=== PATIENT | male | born 1980 | race Caucasian/White ===

== ENCOUNTER 2021-06-06 19:14 | Emergency (ER) | payer OTHER ==
[~2021-06-06] VITALS: Ht 170.2 cm; Wt 90.9 kg
[2021-06-06] MEDS ORDERED: HYDROCODONE/ACETAMINOPHEN 5-325 MG TABLET PO ONE (22:30)
[2021-06-07] MEDS ORDERED: IBUP-2070 PO (01:49)
[2021-06-07 02:00] VITALS: BP 129/63
== END 2021-06-07 02:58 | disposition home or self-care (01) ==
LOC: EMS 19:20
DX: S80.01XA Contusion of right knee, initial encounter (principal); S90.31XA Contusion of right foot, initial encounter; S90.02XA Contusion of left ankle, initial encounter; M54.50 Low back pain, unspecified; Z88.6 Allergy status to analgesic agent; W11.XXXA Fall on and from ladder, initial encounter; Y93.89 Activity, other specified; Y92.89 Other specified places as the place of occurrence of the external cause; Y99.0 Civilian activity done for income or pay
CPT/HCPCS: 29530; 72100; 99284; 73562-TC; 73610-TC; 73630-TC; Z7502; Z7610

== ENCOUNTER 2022-05-11 04:07 | Emergency (ER) | payer SELFPAY ==
[~2022-05-11 04:07] MED LIST: IBUP-1492 PO
== END 2022-05-11 05:32 | disposition left against medical advice (07) ==
LOC: EMS 04:09
DX: R07.89 Other chest pain (principal); F41.0 Panic disorder [episodic paroxysmal anxiety]; Z88.6 Allergy status to analgesic agent
CPT/HCPCS: 99283; Z7502